=== PATIENT | male | born 1985 | race American Indian/Alaskan Native ===

== ENCOUNTER 2016-09-22 10:02 | Emergency (ER) | payer SELFPAY ==
[2016-09-22 10:32] VITALS: BP 122/71
[2016-09-22] MEDS ORDERED: D5NS 0.2% 1,000 ML IV SCH (11:00)
[2016-09-22 11:17] LABS: Basophils % (Auto) 0.9 % (0.0-1.8); Eosinophils % (Auto) 2.9 % (0.0-4.3); Hematocrit 25.8 % (35.5-45.6); Mean Corpuscular HGB Conc 35 % (32-34); Mean Corpuscular Volume 74 fl (84-94); Platelet Count 318 K/mm3 (140-440); Red Blood Count 3.49 M/mm3 (3.65-5.03); Reticulocyte % 6.08 % (0.78-2.58); White Blood Count 11.3 K/mm3 (4.5-11.0)
[2016-09-22 11:25] LABS: Mean Corpuscular Hemoglobin 26 pg (28-32); Red Cell Distribution Width 23.4 % (13.2-15.2)
--- NOTE | 2016-09-23 19:20 | ED Elopement Review ---
ED Pt Elopement review - Results review Lab results: Laboratory Tests 09/22/16 10:34 WBC 11.3 H RBC 3.49 L Hgb 9.0 L Hct 25.8 L MCV 74 L MCH 26 L MCHC 35 H RDW 23.4 H Plt Count 318 Lymph % (Auto) 20.8 [place] % (Auto) 10.1 H Eos % (Auto) 2.9 Baso % (Auto) 0.9 Lymph # 2.4 Gonzales # 1.1 H Eos # 0.3 Baso # 0.1 Seg Neutrophils % 65.3 Seg Neutrophils # 7.4 Percent Retic 6.08 H - Call Back decision Pt Call Back Decision: No action required
== END 2016-09-22 14:10 | disposition left against medical advice (07) ==
LOC: ED 10:02
DX: D57.1 Sickle-cell disease without crisis (principal); Z53.21 Procedure and treatment not carried out due to patient leaving prior to being seen by health care provider
CPT/HCPCS: 36415; 85025; 85045

== ENCOUNTER 2017-01-16 04:10 | Emergency (ER) | payer SELFPAY ==
[2017-01-16 04:20] VITALS: BP 122/76
[2017-01-16] MEDS ORDERED: D5NS 0.2% 1,000 ML IV SCH (05:00)
== END 2017-01-16 04:30 | disposition left against medical advice (07) ==
LOC: ED 04:10
DX: D57.00 Hb-SS disease with crisis, unspecified (principal); Z53.21 Procedure and treatment not carried out due to patient leaving prior to being seen by health care provider

== ENCOUNTER 2017-03-05 06:02 | Emergency (ER) | payer SELFPAY | END 2017-03-05 08:50 | disposition left against medical advice (07) | LOC: ED 06:02 | DX: D57.1 Sickle-cell disease without crisis (principal); Z53.21 Procedure and treatment not carried out due to patient leaving prior to being seen by health care provider ==

== ENCOUNTER 2017-05-06 04:49 | Emergency (ER) | payer OTHER ==
[2017-05-06] MEDS ORDERED: D5NS 0.2% 1,000 ML IV SCH (06:00)
[2017-05-06 06:57] LABS: Hematocrit 25.3 % (35.5-45.6); Hemoglobin 8.5 gm/dl (11.8-15.2); Mean Corpuscular HGB Conc 34 % (32-34); Mean Corpuscular Volume 70 fl (84-94); Platelet Count 383 K/mm3 (140-440); Red Blood Count 3.62 M/mm3 (3.65-5.03); Reticulocyte % 5.35 % (0.78-2.58); White Blood Count 10.1 K/mm3 (4.5-11.0)
[2017-05-06 07:08] LABS: Mean Corpuscular Hemoglobin 24 pg (28-32)
[2017-05-06 07:09] VITALS: BP 121/68
[2017-05-06 07:09] LABS: Red Cell Distribution Width 22.5 % (13.2-15.2)
[2017-05-06] MEDS ORDERED: DILAUDID IM ONE ×2 (07:53)
[2017-05-06] MEDS ORDERED: BENADRYL PO ONE (07:53)
--- NOTE | 2017-05-06 07:54 | Emergency Department Report ---
ED General Adult HPI - General Chief complaint: Sickle Cell Crisis Stated complaint: BACK PAIN Time Seen by Provider: 05/06/17 07:47 Source: patient, RN notes reviewed, old records reviewed Mode of arrival: Ambulatory Limitations: No Limitations - History of Present Illness Initial comments: This is a 32-year-old male who was previously unknown to this provider. He reports a past medical history of sickle cell disease. Patient presents to the ER with lower back pain. The back pain is achy and sharp. It increases with palpation, range of motion, and it decreases with rest. The patient reports that his pain typically decreases with hydromorphone and diphenhydramine. It does not radiate distally. No headache, neck pain, chest pain, abdominal pain, shortness of breath, weakness, numbness, ataxia, patient denies bladder or bowel retention/incontinence, reports that his symptoms today are typical of prior sickle cell crises, and reports that cold weather is a typical inciting factor for his sickle cell crisis. -: Gradual, days(s) (1.5) Location: back Radiation: non-radiation Severity scale (0 -10): 9 Quality: aching Consistency: constant Improves with: medication, rest Worsens with: movement Associated Symptoms: denies: confusion, chest pain, diaphoresis, fever/chills, headaches, loss of appetite, nausea/vomiting, rash, shortness of breath, syncope , weakness - Related Data Home Medications Medication Instructions Recorded Confirmed Last Taken Hydrocodone/Ibuprofen [Vicoprofen 1 tab PO Q6H PRN 11/05/14 07/31/15 07/31/15 7.5-200 mg TAB] Previous Rx's Medication Instructions Recorded Last Taken Type Folic Acid [Folvite] 1 mg PO DAILY #30 tablet 11/10/13 07/30/15 Rx HYDROcodone/APAP 5-325 [[place] 1 each PO Q6HR PRN #10 tablet 05/06/17 Unknown Rx 5-325 mg TAB] Allergies Allergy/AdvReac Type Severity Reaction Status Date / Time ceftriaxone sodium Allergy Hives Verified 08/18/14 06:04 [From Rocephin] ketorolac tromethamine Allergy Hives Verified 08/18/14 06:04 [From Toradol] morphine Allergy Hives Verified 11/05/14 10:19 Penicillins Allergy Hives Verified 03/30/15 06:04 ED Review of Systems ROS: Stated complaint: BACK PAIN Other details as noted in HPI ED Past Medical Hx - Past Medical History Hx Sickle Cell Disease: Yes () - Surgical History Hx Cholecystectomy: Yes (2001) - Social History Smoking Status: Never Smoker Substance Use Type: None - Medications Home Medications: Home Medications Medication Instructions Recorded Confirmed Last Taken Type Folic Acid [Folvite] 1 mg PO DAILY #30 tablet 11/10/13 07/31/15 07/30/15 Rx Hydrocodone/Ibuprofen [Vicoprofen 1 tab PO Q6H PRN 11/05/14 07/31/15 07/31/15 History 7.5-200 mg TAB] HYDROcodone/APAP 5-325 [[place] 1 each PO Q6HR PRN #10 tablet 05/06/17 Unknown Rx 5-325 mg TAB] ED Physical Exam - General Limitations: No Limitations General appearance: alert, in no apparent distress - Head Head exam: Present: atraumatic, normocephalic - Eye Eye exam: Present: normal appearance, PERRL, EOMI. Absent: nystagmus - ENT ENT exam: Present: normal exam, normal orophraynx, mucous membranes moist, normal external ear exam - Neck Neck exam: Present: normal inspection, full ROM - Respiratory Respiratory exam: Present: normal lung sounds bilaterally. Absent: respiratory distress - Cardiovascular Cardiovascular Exam: Present: regular rate, normal rhythm, normal heart sounds. Absent: systolic murmur, diastolic murmur, rubs, gallop - GI/Abdominal GI/Abdominal exam: Present: soft, normal bowel sounds. Absent: distended, tenderness, guarding, rebound, rigid, pulsatile mass - Rectal Rectal exam: Present: deferred - Extremities Exam Extremities exam: Present: normal inspection, full ROM, normal capillary refill. Absent: pedal edema, joint swelling, calf tenderness - Back Exam Back exam: Present: normal inspection, full ROM, paraspinal tenderness. Absent : tenderness, CVA tenderness (R), CVA tenderness (L) - Neurological Exam Neurological exam: Present: alert, oriented X3, CN II-XII intact, normal gait, other (Extraocular movements intact. Tongue midline. No facial droop. Facial sensation intact to light touch in the V1, V2, V3 distribution bilaterally. 5 and 5 strength in 4 extremities.. Sensation is intact to light touch in 4 extremities.). Absent: motor sensory deficit - Psychiatric Psychiatric exam: Present: normal affect, normal mood - Skin Skin exam: Present: warm, dry, intact, normal color. Absent: rash ED Course Vital Signs 05/06/17 05/06/17 05:54 07:08 Temperature 98.2 F 97.8 F Pulse Rate 84 55 L Respiratory 16 16 Rate Blood Pressure 133/70 Blood Pressure 121/68 [Left] O2 Sat by Pulse 100 98 Oximetry ED Medical Decision Making - Lab Data Result diagrams: 05/06/17 06:07 Vital Signs 05/06/17 05/06/17 05:54 07:08 Temperature 98.2 F 97.8 F Pulse Rate 84 55 L Respiratory 16 16 Rate Blood Pressure 133/70 Blood Pressure 121/68 [Left] O2 Sat by Pulse 100 98 Oximetry Lab Results 05/06/17 Range/Units 06:07 WBC 10.1 (4.5-11.0) K/mm3 RBC 3.62 L (3.65-5.03) M/mm3 Hgb 8.5 L (11.8-15.2) gm/dl Hct 25.3 L (35.5-45.6) % MCV 70 L (84-94) fl MCH 24 L (28-32) pg MCHC 34 (32-34) % RDW 22.5 H (13.2-15.2) % Plt Count 383 (140-440) K/mm3 Lymph # [employer] Percent Retic 5.35 H (0.78-2.58) % - Medical Decision Making Differential diagnosis, including but not limited to: Sickle cell crisis, musculoskeletal back pain Assessment and plan: 32-year-old male with history of sickle cell crisis reporting typical sickle cell crisis pain. Objectively speaking he is afebrile with reassuring vital signs, has appropriate strength, sensation, and walks with a steady gait. He has reproducible paraspinal tenderness, denies irritative and obstructive urinary symptoms, and his history and physical did not corroborative support epidural compression syndrome or AAA. Patient medicated with hydromorphone and diphenhydramine, and will be discharged with instructions to follow-up with outpatient hematology. Critical care attestation.: If time is entered above; I have spent that time in minutes in the direct care of this critically ill patient, excluding procedure time. ED Disposition Clinical Impression: Sickle cell pain crisis Disposition: DC-01 TO HOME OR SELFCARE Is pt being admited?: No Does the pt Need Aspirin: No Condition: Stable Instructions: Sickle Cell Crisis (ED) Additional Instructions: Take the pain medication as needed/directed. If taking the pain medication, do not drive, consumption of alcohol, or make important decisions. Follow up with her primary care doctor or hematology integration specialist within the next 7-10 days. Return to the ER right away with new pain, worsening pain, migration of pain, fevers, chills, lethargy, irritability, projectile vomiting, change in mental status, confusion, inability to tolerate liquid feeds. Referrals: MOISES CUELLO MD [Staff Physician] - 3-5 Days
[2017-05-06] MEDS ORDERED: DILAUDID IV ONE (08:00)
[2017-05-06] MEDS ORDERED: DILAUDID ONE (08:19)
[2017-05-06 11:18] LABS: Basophils % (Manual) 0 % (0.0-1.8); Blastocytes % (Manual) 0 %
[2017-05-06 11:22] LABS: Anisocytosis 1+; Hypochromasia 1+; Sickle Cells 1+; Target Cells 1+
[2017-05-06 11:23] LABS: Diff Status Complete; Elliptocytes Few; Platelet Estimate Consistent w Auto; Tear Drop Cells Few
== END 2017-05-06 09:10 | disposition home or self-care (01) ==
LOC: ED 04:49
DX: D57.00 Hb-SS disease with crisis, unspecified (principal); Z88.6 Allergy status to analgesic agent; Z88.1 Allergy status to other antibiotic agents; Z88.0 Allergy status to penicillin; Z88.8 Allergy status to other drugs, medicaments and biological substances
CPT/HCPCS: 36415; 85007; 85025; 85045; 96372; 99283; J1170

== ENCOUNTER 2019-09-14 12:29 | Emergency (ER) | payer SELFPAY ==
[2019-09-14] MEDS ORDERED: SODIUM CHLORIDE 0.9% 1000 ML 1,000 ML IV ONE (13:29)
[2019-09-14] MEDS ORDERED: HYDROmorphone 2 MG/1 ML INJ IV ONE ×2 (13:29→14:26)
[2019-09-14] MEDS ORDERED: diphenhydrAMINE 50 MG/ML VIAL IV ONE (13:29)
--- NOTE | 2019-09-14 13:54 | Emergency Department Report ---
ED General Adult HPI - General Chief complaint: Sickle Cell Crisis Stated complaint: SICKLE CELL Time Seen by Provider: 09/14/19 13:28 Source: patient Mode of arrival: Ambulatory Limitations: No Limitations - History of Present Illness Initial comments: 34-year-old male with history of sickle cell disease (Hb SS) presents to the ED with complaint of sickle cell crisis since yesterday. Patient states pain is unrelieved by his home dose of oxycodone. Patient reports pain and in his lower back, bilateral legs and shoulders. Patient denies fever, chest pain, shortness of breath. Patient denies known contact with anyone who has tested positive for coronavirus. 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 States he is currently working in [place]. -: Last night Location: back, left, right, upper extremity, lower extremity Severity scale (0 -10): 8 Quality: aching Consistency: constant Improves with: none Worsens with: none Associated Symptoms: denies: chest pain, cough, fever/chills, shortness of breath - Related Data Home Medications Medication Instructions Recorded Confirmed Last Taken Hydrocodone/Ibuprofen [Vicoprofen 1 tab PO Q6H PRN 11/05/14 07/31/15 07/31/15 7.5-200 mg TAB] Previous Rx's Medication Instructions Recorded Last Taken Type Folic Acid [Folvite] 1 mg PO DAILY #30 tablet 11/10/13 07/30/15 Rx HYDROcodone/APAP 5-325 [[place] 1 each PO Q6HR PRN #10 tablet 05/06/17 Unknown Rx 5-325 mg TAB] Allergies Allergy/AdvReac Type Severity Reaction Status Date / Time ceftriaxone sodium Allergy Hives Verified 08/18/14 06:04 [From Rocephin] ketorolac tromethamine Allergy Hives Verified 08/18/14 06:04 [From Toradol] morphine Allergy Hives Verified 11/05/14 10:19 Penicillins Allergy Hives Verified 08/18/14 06:04 ED Review of Systems ROS: Stated complaint: SICKEL CELL Other details as noted in HPI Comment: All other systems reviewed and negative Constitutional: denies: chills, fever Respiratory: denies: cough, shortness of breath Cardiovascular: denies: chest pain Musculoskeletal: as per HPI, back pain, arthralgia, myalgia ED Past Medical Hx - Past Medical History Previous Medical History?: Yes Hx Sickle Cell Disease: Yes () - Surgical History Past Surgical History?: Yes Hx Cholecystectomy: Yes (2001) - Social History Smoking Status: Never Smoker Substance Use Type: Alcohol, Prescribed - Medications Home Medications: Home Medications Medication Instructions Recorded Confirmed Last Taken Type Folic Acid [Folvite] 1 mg PO DAILY #30 tablet 11/10/13 07/31/15 07/30/15 Rx Hydrocodone/Ibuprofen [Vicoprofen 1 tab PO Q6H PRN 11/05/14 07/31/15 07/31/15 History 7.5-200 mg TAB] HYDROcodone/APAP 5-325 [[place] 1 each PO Q6HR PRN #10 tablet 05/06/17 Unknown Rx 5-325 mg TAB] ED Physical Exam - General Limitations: No Limitations General appearance: alert, in no apparent distress - Head Head exam: Present: atraumatic, normocephalic - Eye Eye exam: Present: normal appearance, EOMI - ENT ENT exam: Present: mucous membranes moist - Neck Neck exam: Present: normal inspection - Respiratory Respiratory exam: Present: normal lung sounds bilaterally. Absent: respiratory distress - Cardiovascular Cardiovascular Exam: Present: regular rate, normal rhythm - GI/Abdominal GI/Abdominal exam: Present: soft. Absent: distended, tenderness - Extremities Exam Extremities exam: Present: normal inspection - Neurological Exam Neurological exam: Present: alert, oriented X3 - Psychiatric Psychiatric exam: Present: normal affect, normal mood - Skin Skin exam: Present: warm, dry, intact, normal color ED Course Vital Signs 09/14/19 09/14/19 09/14/19 12:31 12:35 13:30 Temperature 98.3 F 98.3 F Pulse Rate 68 70 Respiratory 18 18 Rate Blood Pressure 127/70 127/70 O2 Sat by Pulse 100 100 100 Oximetry 09/14/19 09/14/19 09/14/19 13:45 14:00 14:15 Temperature Pulse Rate Respiratory Rate Blood Pressure 123/72 125/64 118/69 O2 Sat by Pulse 100 100 100 Oximetry 09/14/19 09/14/19 09/14/19 14:30 14:45 15:00 Temperature Pulse Rate Respiratory Rate Blood Pressure 122/70 113/62 112/68 O2 Sat by Pulse 99 97 97 Oximetry ED Medical Decision Making - Lab Data Result diagrams: 09/14/19 13:14 09/14/19 14:25 - Medical Decision Making Pt given IV fluid bolus, benadryl, dilaudid 2 mg x 2 doses. He is feeling much better at this time. Hb 8.7 and retic count 2.7. Pt feels ok for discharge home. Has oxycodone at home. Return precautions given - Differential Diagnosis sickle cell pain crisis Critical care attestation.: If time is entered above; I have spent that time in minutes in the direct care of this critically ill patient, excluding procedure time. ED Disposition Clinical Impression: Sickle cell anemia with pain Disposition: DC-01 TO HOME OR SELFCARE Is pt being admited?: No Condition: Stable Instructions: Sickle Cell Crisis (ED) Referrals: JOSE RUIZ DO [Staff Physician] - as needed Time of Disposition: 15:24
[2019-09-14 13:59] LABS: Hematocrit 27.4 % (35.5-45.6); Hemoglobin 8.7 gm/dl (11.8-15.2); Mean Corpuscular HGB Conc 32 % (32-34); Mean Corpuscular Volume 64 fl (84-94); Platelet Count 833 K/mm3 (140-440); Red Blood Count 4.28 M/mm3 (3.65-5.03)
[2019-09-14 14:15] LABS: BUN/Creatinine Ratio TNR; Blood Urea Nitrogen TNR mg/dL (9-20)
[2019-09-14 14:16] LABS: Calcium TNR mg/dL (8.4-10.2); Hemolysis Index TNR
[2019-09-14 14:47] LABS: BUN/Creatinine Ratio 6; Blood Urea Nitrogen 4 mg/dL (9-20); Calcium 8.9 mg/dL (8.4-10.2); Hemolysis Index 5
[2019-09-14 14:51] LABS: Basophils % (Manual) 0 % (0.0-1.8); Hypochromasia 1+; Sickle Cells 1+; Target Cells 3+; Total Cells Counted 100
[2019-09-14 14:52] LABS: Giant Platelets Few; Platelet Estimate Consistent w Auto
[2019-09-14 15:14] VITALS: BP 112/68
== END 2019-09-14 15:51 | disposition home or self-care (01) ==
LOC: ED 12:29
DX: D57.1 Sickle-cell disease without crisis (principal); Z90.49 Acquired absence of other specified parts of digestive tract; Z79.899 Other long term (current) drug therapy; Z88.0 Allergy status to penicillin; Z88.6 Allergy status to analgesic agent; Z88.8 Allergy status to other drugs, medicaments and biological substances
CPT/HCPCS: 36415; 80048; 85007; 85025; 85045; 96374; 96375; 96376; 99283; J1170; J1200; J7030

== ENCOUNTER 2019-09-16 01:24 | Emergency (ER) | payer SELFPAY ==
--- NOTE | 2019-09-16 02:27 | Emergency Department Report ---
ED General Adult HPI - General Chief complaint: Sickle Cell Crisis Stated complaint: SICKLE CELL PAIN Time Seen by Provider: 09/16/19 02:24 Source: patient, RN notes reviewed, old records reviewed Mode of arrival: Ambulatory Limitations: No Limitations - History of Present Illness Initial comments: Patient is a 34-year-old gentleman, who is known to myself previously, has a history of sickle cell disease, currently visiting from [place], presenting to the ER with a complaint of sickle cell pain. He was seen in this department a few days ago for similar symptoms, and had fairly unremarkable studies. Patient denies fever, cough, and confirmed exposure to the coronavirus. He endorses diffuse muscular pain, back pain, extremity pain, denies testicular pain, denies priapism, but does endorse some discomfort on his penile shaft. This is at the base of the shaft. He denies dysuria, hematuria, and irritative/obstructive urinary symptoms. His pain is typically improved with hydromorphone and Benadryl. -: Gradual, days(s) Location: back, left, right, upper extremity, lower extremity Consistency: constant Improves with: medication, rest Worsens with: movement - Related Data Home Medications Medication Instructions Recorded Confirmed Last Taken Hydrocodone/Ibuprofen [Vicoprofen 1 tab PO Q6H PRN 11/05/14 07/31/15 07/31/15 7.5-200 mg TAB] Previous Rx's Medication Instructions Recorded Last Taken Type Folic Acid [Folvite] 1 mg PO DAILY #30 tablet 11/10/13 07/30/15 Rx HYDROcodone/APAP 5-325 [[place] 1 each PO Q6HR PRN #10 tablet 05/06/17 Unknown Rx 5-325 mg TAB] Allergies Allergy/AdvReac Type Severity Reaction Status Date / Time ceftriaxone sodium Allergy Hives Verified 08/18/14 06:04 [From Rocephin] ketorolac tromethamine Allergy Hives Verified 08/18/14 06:04 [From Toradol] morphine Allergy Hives Verified 11/05/14 10:19 Penicillins Allergy Hives Verified 08/18/14 06:04 ED Review of Systems ROS: Stated complaint: SICKLE CELL PAIN Other details as noted in HPI Constitutional: denies: fever Eyes: denies: eye discharge ENT: denies: congestion Respiratory: denies: wheezing Cardiovascular: as per HPI Gastrointestinal: denies: nausea, vomiting Genitourinary: as per HPI Musculoskeletal: arthralgia, myalgia Skin: as per HPI Neurological: as per HPI Psychiatric: as per HPI Hematological/Lymphatic: as per HPI ED Past Medical Hx - Past Medical History Previous Medical History?: Yes Hx Sickle Cell Disease: Yes (sickle cell) - Surgical History Past Surgical History?: Yes Hx Cholecystectomy: Yes (2001) - Social History Smoking Status: Never Smoker Substance Use Type: None - Medications Home Medications: Home Medications Medication Instructions Recorded Confirmed Last Taken Type Folic Acid [Folvite] 1 mg PO DAILY #30 tablet 11/10/13 07/31/15 07/30/15 Rx Hydrocodone/Ibuprofen [Vicoprofen 1 tab PO Q6H PRN 11/05/14 07/31/15 07/31/15 History 7.5-200 mg TAB] HYDROcodone/APAP 5-325 [[place] 1 each PO Q6HR PRN #10 tablet 05/06/17 Unknown Rx 5-325 mg TAB] ED Physical Exam - General Limitations: No Limitations General appearance: alert, in no apparent distress - Head Head exam: Present: atraumatic, normocephalic - Eye Eye exam: Present: normal appearance, EOMI, other (There is no scleral icterus). Absent: scleral icterus, conjunctival injection, nystagmus, periorbital tenderness - ENT ENT exam: Present: normal exam, normal orophraynx, mucous membranes moist, normal external ear exam - Neck Neck exam: Present: normal inspection, full ROM. Absent: tenderness, meningismus - Respiratory Respiratory exam: Present: normal lung sounds bilaterally. Absent: respiratory distress - Cardiovascular Cardiovascular Exam: Present: regular rate, normal rhythm, normal heart sounds. Absent: bradycardia, tachycardia, irregular rhythm, systolic murmur, diastolic murmur, rubs, gallop - GI/Abdominal GI/Abdominal exam: Present: soft, normal bowel sounds. Absent: distended, tenderness, guarding, rebound, rigid, bruit, pulsatile mass - Rectal Rectal exam: Present: deferred - exam: Present: normal inspection (Chaperoned by nurse Bety Redding), other (There is normal testicular lie. There is normal cremasteric reflex. There is no testicular tenderness. There is no testicular swelling). Absent: testicular tenderness, scrotal swelling External exam: Present: normal external exam - Extremities Exam Extremities exam: Present: full ROM, tenderness, other (2+ pulses noted on the bilateral upper and lower extremities. The pelvis is stable. The muscular compartments are soft. There is long bony tenderness noted on the bilateral lower extremities.). Absent: calf tenderness - Back Exam Back exam: Present: normal inspection, full ROM, paraspinal tenderness. Absent: tenderness, CVA tenderness (R), CVA tenderness (L) - Neurological Exam Neurological exam: Present: alert, oriented X3, normal gait, other (No facial droop. Tongue midline. Extraocular movements intact bilaterally. Facial sensation intact to light touch in V1, V2, V3 distribution bilaterally. 5 and a 5 strength in 4 extremities. Sensation intact to light touch in 4 extremities.). Absent: motor sensory deficit - Psychiatric Psychiatric exam: Present: normal affect, normal mood - Skin Skin exam: Present: warm, dry, intact, normal color. Absent: rash ED Course Vital Signs 09/16/19 09/16/19 09/16/19 01:26 02:07 02:57 Temperature 99.6 F Pulse Rate 81 Respiratory 18 16 18 Rate Blood Pressure 118/73 Blood Pressure [Right] O2 Sat by Pulse 100 Oximetry 09/16/19 09/16/19 03:26 04:10 Temperature 98.3 F 99.0 F Pulse Rate 74 85 Respiratory 18 20 Rate Blood Pressure Blood Pressure 121/82 124/78 [Right] O2 Sat by Pulse 96 96 Oximetry - Reevaluation(s) Reevaluation #1: 09/16/19 02:27 ga data review specialist awarte Filled ID Written Drug QTY Days Prescriber Rx # Pharmacy * Refills Daily Dose Pymt Type [facility] 05/06/2019 1 05/06/2019 OXYCODONE HCL 30 MG TABLET 180.0 30 TR ANDER [id number] [facility] ([id number]) 0 [place] 04/05/2019 1 04/05/2019 OXYCODONE HCL 30 MG TABLET 180.0 30 TR ANDER [id number] [facility] ([id number]) 0 [place] 03/06/2019 1 03/06/2019 OXYCODONE HCL 30 MG TABLET 180.0 30 TR ANDER [id number] [facility] ([id number]) 0 [place] 02/01/2019 1 02/01/2019 OXYCODONE HCL 30 MG TABLET 180.0 30 TR ANDER [id number] [facility] ([id number]) 0 [place] 01/01/2019 1 12/31/2018 OXYCODONE HCL 30 MG TABLET 180.0 30 TR ANDER [id number] [facility] (95) 0 [place] 11/30/2018 1 11/30/2018 OXYCODONE HCL 30 MG TABLET 180.0 30 ME HEP [id number] [facility] (95) 0 [place] 11/02/2018 1 11/01/2018 OXYCODONE HCL 30 MG TABLET 180.0 30 ASHLEY [id number] [facility] ([facility]) 0 Comm [place] 10/01/2018 1 09/18/2018 OXYCODONE HCL 30 MG TABLET 180.0 30 ME HEP [id number] [facility] ([facility]) 0 Comm [place] Reevaluation #2: 09/16/19 03:28 Differential diagnosis, including but not limited to: Sickle cell crisis, narcotic dependence Assessment and plan: 34-year-old gentleman with a history of sickle cell pain, who is afebrile, with reassuring vital signs, with no physical evidence of priapism, unremarkable laboratory studies a few days ago. We will treat his pain. Explained to the patient that we plan on discharging him. He verbalizes understanding. Reevaluation #3: 09/16/19 05:04 Feeling improved. Playing on a cellular phone. Vital signs remained stable. He appears to be comfortable. Additional dose of hydromorphone administered, and patient will be discharged with instructions to follow-up. ED Medical Decision Making - Lab Data Vital Signs 09/16/19 09/16/19 09/16/19 01:26 02:07 02:57 Temperature 99.6 F Pulse Rate 81 Respiratory 18 16 18 Rate Blood Pressure 118/73 Blood Pressure [Right] O2 Sat by Pulse 100 Oximetry 09/16/19 03:26 Temperature 98.3 F Pulse Rate 74 Respiratory 18 Rate Blood Pressure Blood Pressure 121/82 [Right] O2 Sat by Pulse 96 Oximetry Critical care attestation.: If time is entered above; I have spent that time in minutes in the direct care of this critically ill patient, excluding procedure time. ED Disposition Clinical Impression: Sickle cell pain crisis Disposition: DC-01 TO HOME OR SELFCARE Is pt being admited?: No Does the pt Need Aspirin: No Condition: Stable Instructions: Sickle Cell Crisis (ED) Additional Instructions: Continue current outpatient medications. Follow-up with a primary care doctor or yard cleaner as soon as possible. Do not touch hands to face, eyes, or mouth. Wash all clothing with hot water and soap as soon as you get home. Return to the emergency room right away with new, worsened or different s ymptoms, or symptoms not present on the initial emergency room evaluation. Referrals: MOISES CUELLO MD [Staff Physician] - 3-5 Days JOSE RUIZ DO [Staff Physician] - 3-5 Days
[2019-09-16] MEDS ORDERED: diphenhydrAMINE 25 MG/10 ML ORAL LIQUID PO ONE (02:33)
[2019-09-16] MEDS ORDERED: HYDROmorphone 2 MG/1 ML INJ IM ONE ×2 (02:33→03:30)
[2019-09-16 04:10] VITALS: BP 124/78
[2019-09-16] MEDS ORDERED: hydrALAZINE 20 MG/1 ML INJ ONE (05:02)
[2019-09-16] MEDS: HYDROmorphone 1 MG/1 ML INJ IM ONE ×2 (05:10→05:12)
== END 2019-09-16 05:13 | disposition home or self-care (01) ==
LOC: ED 01:24
DX: D57.00 Hb-SS disease with crisis, unspecified (principal); Z88.6 Allergy status to analgesic agent; Z88.0 Allergy status to penicillin; Z88.8 Allergy status to other drugs, medicaments and biological substances; Z79.899 Other long term (current) drug therapy; Z90.49 Acquired absence of other specified parts of digestive tract
CPT/HCPCS: 96372; 99283; J1170; J0360; Q0163

== ENCOUNTER 2019-09-21 04:02 | Emergency (ER) | payer SELFPAY ==
[2019-09-21] MEDS ORDERED: SODIUM CHLORIDE 0.9% 1000 ML 1,000 ML IV ONE ×2 (04:19)
[2019-09-21] MEDS ORDERED: HYDROmorphone 1 MG/1 ML INJ IV ONE ×2 (04:19→05:25)
[2019-09-21] MEDS ORDERED: diphenhydrAMINE 50 MG/ML VIAL IV ONE ×2 (04:19→05:25)
[2019-09-21] MEDS ORDERED: TERBUTALINE 1 MG/1 ML INJ SUB-Q ONE (04:20)
--- NOTE | 2019-09-21 04:39 | Emergency Department Report ---
ED General Adult HPI - General Chief complaint: Sickle Cell Crisis Stated complaint: SICKLE CELL COMPLICATIONS Time Seen by Provider: 09/21/19 04:36 Source: patient Mode of arrival: Ambulatory Limitations: No Limitations - History of Present Illness Initial comments: Patient is a 34-year-old F [place] male with a past medical history of sickle cell disease who is presenting with sickle cell crisis. Patient states he had a priapism for the last several hours however this is self resolved. Patient states he has pain in his bilateral thighs hips and lower back. States this is consistent with his sickle cell. Patient denies fever cough cold or congestion. Patient states the pain is 10 out of 10 in severity. - Related Data Home Medications Medication Instructions Recorded Confirmed Last Taken Hydrocodone/Ibuprofen [Vicoprofen 1 tab PO Q6H PRN 11/05/14 07/31/15 07/31/15 7.5-200 mg TAB] Previous Rx's Medication Instructions Recorded Last Taken Type Folic Acid [Folvite] 1 mg PO DAILY #30 tablet 11/10/13 07/30/15 Rx HYDROcodone/APAP 5-325 [Sunset 1 each PO Q6HR PRN #10 tablet 05/06/17 Unknown Rx 5-325 mg TAB] Allergies Allergy/AdvReac Type Severity Reaction Status Date / Time ceftriaxone sodium Allergy Hives Verified 09/21/19 04:06 [From Rocephin] ketorolac tromethamine Allergy Hives Verified 09/21/19 04:06 [From Toradol] morphine Allergy Hives Verified 09/21/19 04:06 Penicillins Allergy Hives Verified 09/21/19 04:06 ED Review of Systems ROS: Stated complaint: SICKLE CELL COMPLICATIONS Other details as noted in HPI Comment: All other systems reviewed and negative ED Past Medical Hx - Past Medical History Hx Sickle Cell Disease: Yes (sickle cell) - Surgical History Hx Cholecystectomy: Yes (2001) - Social History Smoking Status: Never Smoker Substance Use Type: None - Medications Home Medications: Home Medications Medication Instructions Recorded Confirmed Last Taken Type Folic Acid [Folvite] 1 mg PO DAILY #30 tablet 11/10/13 07/31/15 07/30/15 Rx Hydrocodone/Ibuprofen [Vicoprofen 1 tab PO Q6H PRN 11/05/14 07/31/15 07/31/15 History 7.5-200 mg TAB] HYDROcodone/APAP 5-325 [Sunset 1 each PO Q6HR PRN #10 tablet 05/06/17 Unknown Rx 5-325 mg TAB] ED Physical Exam - General Limitations: No Limitations General appearance: alert, in distress - Head Head exam: Present: atraumatic, normocephalic - Eye Eye exam: Present: normal appearance - ENT ENT exam: Present: mucous membranes moist - Neck Neck exam: Present: normal inspection - Respiratory Respiratory exam: Present: normal lung sounds bilaterally. Absent: respiratory distress, wheezes, rales, rhonchi - Cardiovascular Cardiovascular Exam: Present: regular rate, normal rhythm, normal heart sounds. Absent: systolic murmur, diastolic murmur, rubs, gallop - GI/Abdominal GI/Abdominal exam: Present: soft, normal bowel sounds. Absent: distended, tenderness, guarding, rebound - Rectal Rectal exam: Present: deferred - Extremities Exam Extremities exam: Present: normal inspection - Back Exam Back exam: Present: normal inspection - Neurological Exam Neurological exam: Present: alert, oriented X3 - Psychiatric Psychiatric exam: Present: normal affect, normal mood - Skin Skin exam: Present: warm, dry, intact, normal color. Absent: rash ED Medical Decision Making - Lab Data Result diagrams: 09/21/19 04:34 09/21/19 04:34 - Medical Decision Making Patient received 2 rounds of Dilaudid Benadryl he states his pain is started to subside and will be discharged home. Critical care attestation.: If time is entered above; I have spent that time in minutes in the direct care of this critically ill patient, excluding procedure time. ED Disposition Clinical Impression: Sickle cell anemia with pain, Sickle cell pain crisis Disposition: TO HOME OR SELFCARE Is pt being admited?: No Does the pt Need Aspirin: No Condition: Stable Instructions: Sickle Cell Crisis (ED) Referrals: LANA PENG MD [Staff Physician] - 3-5 Days
[2019-09-21 04:54] LABS: Hematocrit 24.4 % (35.5-45.6); Hemoglobin 7.8 gm/dl (11.8-15.2); Mean Corpuscular HGB Conc 32 % (32-34); Platelet Count 631 K/mm3 (140-440); Red Blood Count 3.96 M/mm3 (3.65-5.03)
[2019-09-21 05:07] LABS: Mean Corpuscular Volume 62 fl (84-94)
[2019-09-21 05:11] LABS: BUN/Creatinine Ratio 7; Blood Urea Nitrogen 5 mg/dL (9-20); Calcium 9.6 mg/dL (8.4-10.2); Hemolysis Index 7
[2019-09-21 06:18] LABS: Band Neutrophils # (Manual) 0.2 K/mm3; Basophils % (Manual) 0 % (0.0-1.8); Total Cells Counted 100
[2019-09-21 06:19] LABS: Anisocytosis 1+; Hypochromasia 1+
[2019-09-21 06:20] LABS: Platelet Estimate Consistent w Auto; Target Cells 2+
== END 2019-09-21 06:04 | disposition home or self-care (01) ==
LOC: ED 04:02
DX: D57.00 Hb-SS disease with crisis, unspecified (principal); Z79.899 Other long term (current) drug therapy; Z88.0 Allergy status to penicillin; Z88.8 Allergy status to other drugs, medicaments and biological substances
CPT/HCPCS: 36415; 80048; 85007; 85025; 85045; 96374; 96375; 96376; 99283; J1170; J1200; J7030